=== PATIENT | female | born 1990 | race Caucasian/White ===

== ENCOUNTER 2016-08-31 16:40 | Emergency (ER) | payer BC ==
--- NOTE | ~2016-08-31 | CR2 ---
[facility] A Service of [facility] RADIOLOGY TEXT RESULTS PATIENT: ALYSSIA ROTH LOCATION: SED : [birth year] UNIT #: [id number] AGE: [address]: STEPHANY MEJIAS SEX: F ORDER DR: [id number] [place] [id number] E MR#: [id number] Acc #: [id number] NAME: ALYSSIA ROTH : 1990 SEX: F STUDY DATE/TIME: 08/31/2016 16:52 UNIT: SED ROOM: STUDY DESCRIPTION: CR Abdomen Acute Series Attending Physician: Obey Martinez. Ordering Physician: Cuco Not Listed Primary Care Physician: No Primary Care Physician MEDICAL IMAGING REPORT This report is preliminary unless electronic signature is present. EXAM Acute abdomen series, 08/31/2016. HISTORY Abdominal problems for about 1 month. Constipation. Asthma, anxiety, depression. FINDINGS AP radiograph of chest presented with supine and upright radiographs of the abdomen and pelvis. Comparison 12/30/2013. Bony structures of the chest, abdomen, and pelvis are unremarkable. Heart and mediastinum normal in size and contour. The lungs are well-inflated and clear. No pleural effusion, pneumothorax, or suspicious nodule. Bowel gas pattern shows moderate to large stool burden throughout colon. There is no pathologic colonic dilatation. While the appearance may be physiologic in nature, it may reflect the patient's staged history of constipation. There is no small bowel dilatation. There is no free air. Where visible, solid organ contours are unremarkable. Dictated by... Enmanuel Burns M.D. THIS IS AN ELECTRONICALLY VERIFIED REPORT Enmanuel Burns M.D. at 09/01/2016 8:06 PM TOOTIE/jeff TD: 08/31/2016 19:22 [facility] A Service [facility] RADIOLOGY TEXT RESULTS PATIENT: ALYSSIA ROTH LOCATION: SED : 92 UNIT #: [id number] AGE: [address]: STEPHANY MEJIAS SEX: F ORDER DR: JOB #: [id number] MEDICAL IMAGING REPORT Page 1 of 1
[~2016-08-31 16:40] MED LIST: ALB/IPRATROPIUM/1 E1 INH; ALBUTEROL17 GM INH; AMOXIL500 M1 PO; AUGMENTIN PO; BIAXIN PO; CIPRO PO; CLARITIN D PO; DIFLUCAN PO; FLAGYL PO; FLEXERIL10 MG PO; IBUPROFEN800 MG PO; NAPROSYN500 MG PO; NO MEDICATIONS; OMEPRAZOLE20 M2 PO; PHENERGAN25 M1 PO; PYRIDIUM PO; ROBAXIN 750750 M1 PO; ZOFRAN PO; ZOVIRAX200 MG DOB
[2016-08-31] MEDS ORDERED: COLACE PO (18:03)
[2016-08-31] MEDS ORDERED: LACTULOSE10 G/15 M1 PO (18:04)
== END 2016-08-31 18:05 | disposition home or self-care (01) ==
LOC: SED 16:40
DX: K59.00 Constipation, unspecified (principal); J45.909 Unspecified asthma, uncomplicated; F17.210 Nicotine dependence, cigarettes, uncomplicated
CPT/HCPCS: 74022; 99283